=== PATIENT | female | born 1950 | race Hispanic/Latino ===

== ENCOUNTER 2017-10-19 18:27 | Emergency (ER) | payer BC, OTHER ==
[~2017-10-19 18:27] MED LIST: ATOR10 PO; INSU3INS3 SQ; LINA1TAB5 PO; LOSA25TA21 PO
[2017-10-19] MEDS ORDERED: TETANUS/DIPHTHERIA TOXOID [ADULT] 0.5 ML VIAL IM ONE (18:41)
== END 2017-10-19 18:56 | disposition home or self-care (01) ==
LOC: EDH 18:27
DX: I83.892 Varicose veins of left lower extremity with other complications (principal); E11.9 Type 2 diabetes mellitus without complications; W22.8XXA Striking against or struck by other objects, initial encounter; Y93.89 Activity, other specified; Y92.89 Other specified places as the place of occurrence of the external cause; Y99.8 Other external cause status
CPT/HCPCS: 90471; 90714

== ENCOUNTER 2018-04-21 11:45 | Emergency (ER) | payer OTHER ==
[~2018-04-21 11:45] MED LIST changes: +LOSA25TA16 PO; -LOSA25TA21 PO
[2018-04-21] MEDS ORDERED: IBUPROFEN 600 MG TABLET ONE (12:37)
== END 2018-04-21 13:31 | disposition home or self-care (01) ==
LOC: EDH 11:45
DX: S83.8X1A Sprain of other specified parts of right knee, initial encounter (principal); W08.XXXA Fall from other furniture, initial encounter; Y93.89 Activity, other specified; Y92.89 Other specified places as the place of occurrence of the external cause; Y99.8 Other external cause status
CPT/HCPCS: 73562

== ENCOUNTER → 2020-01-16 | Outpatient (CLI) | payer OTHER | END | disposition home or self-care (01) | DX: Z12.31 Encounter for screening mammogram for malignant neoplasm of breast (principal) ==

== ENCOUNTER → 2021-02-09 | Outpatient (CLI) | payer OTHER ==
[~2021-02-09] MED LIST changes: -LOSA25TA16 PO; +LOSA25TA41 PO
== END | disposition home or self-care (01) ==
LOC: RAH 08:21
PROVIDERS: ATTEND Internal Medicine
DX: Z12.31 Encounter for screening mammogram for malignant neoplasm of breast (principal)
CPT/HCPCS: 77067

== ENCOUNTER → 2023-11-22 | Outpatient (CLI) | payer OTHER | END | disposition home or self-care (01) | LOC: RAH 09:26 | PROVIDERS: ATTEND Family Medicine | DX: Z12.31 Encounter for screening mammogram for malignant neoplasm of breast (principal) | CPT/HCPCS: 77067 ==

== ENCOUNTER 2024-10-02 20:46 | Emergency (ER) | payer OTHER ==
[~2024-10-02] VITALS: Ht 154.9 cm; Wt 86.2 kg
[2024-10-02] MEDS: CYCLOBENZAPRINE HCL 10 MG TABLET PO ONE (22:43)
[2024-10-02] MEDS: ketOROlac 15MG/ML VIAL (15MG/ML) IM ONE (22:43)
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
[2024-10-03 00:37] VITALS: BP 162/82; PULSE 62; RESP 16; TEMP 98.2; O2SAT 99
== END 2024-10-03 00:39 | disposition home or self-care (01) ==
LOC: EDH 20:46
DX: M54.50 Low back pain, unspecified (principal); E11.9 Type 2 diabetes mellitus without complications; E78.00 Pure hypercholesterolemia, unspecified; I10 Essential (primary) hypertension; Z79.84 Long term (current) use of oral hypoglycemic drugs; Z79.899 Other long term (current) drug therapy; V09.9XXA Pedestrian injured in unspecified transport accident, initial encounter; Y93.89 Activity, other specified; Y92.488 Other paved roadways as the place of occurrence of the external cause; Y99.8 Other external cause status
CPT/HCPCS: 99285; 71250; 82948; 74176; 96372; J1885